=== PATIENT | male | born 1970 | race African-American/Black ===

== ENCOUNTER 2017-01-02 19:37 | Emergency (ER) | payer OTHER | END 2017-01-02 20:13 | disposition home or self-care (01) | LOC: NAV ERS 19:37 | DX: M79.645 Pain in left finger(s) (principal); F17.210 Nicotine dependence, cigarettes, uncomplicated | CPT/HCPCS: 99283 ==

== ENCOUNTER 2017-02-01 16:33 | Emergency (ER) | payer OTHER ==
[2017-02-01] MEDS ORDERED: Mag-Al Plus 1200 MG/1200 MG/120 MG/30 ML UDCUP ONE (16:59)
[2017-02-01] MEDS ORDERED: Ondansetron ODT 4 MG TAB ONE (16:59)
--- NOTE | 2017-02-01 17:46 | RAD ---
FRONTAL RADIOGRAPH CHEST UPRIGHT AND SUPINE FRONTAL IMAGING ABDOMEN AND PELVIS: 02/01/17 COMPARISON: None. HISTORY: Cough and upset stomach for a week. FINDINGS: Frontal radiograph chest demonstrates clear lungs with normal heart and mediastinal contours. No acu te osseous abnormality. Two views of the abdomen demonstrate no evidence for free intraperitoneal air or bowel obstruction. IMPRESSION: No acute findings. POS: H
== END 2017-02-01 17:45 | disposition home or self-care (01) ==
LOC: NAV ERS 16:33
DX: J20.9 Acute bronchitis, unspecified (principal); R11.0 Nausea; F17.210 Nicotine dependence, cigarettes, uncomplicated; Z71.6 Tobacco abuse counseling
CPT/HCPCS: 74022; Q0162

== ENCOUNTER 2017-07-22 03:09 | Emergency (ER) | payer MEDICARE, OTHER ==
[2017-07-22] MEDS ORDERED: Ketorolac Tromethamine 60 MG/2 ML VIAL ONE (03:32)
[2017-07-22] MEDS ORDERED: Cyclobenzaprine 10 MG TAB ONE (03:32)
== END 2017-07-22 03:55 | disposition home or self-care (01) ==
LOC: NAV ERS 03:09
DX: M54.5 Low back pain (principal); F43.10 Post-traumatic stress disorder, unspecified; F17.210 Nicotine dependence, cigarettes, uncomplicated
CPT/HCPCS: 96372; J1885